=== PATIENT | female | born 1935 | race Caucasian/White ===

== ENCOUNTER → 2017-05-02 | Outpatient (CLI) | payer MEDICARE ==
--- NOTE | ~2017-05-02 | NM22 ---
[facility] A Service of [facility] & [facility] RADIOLOGY TEXT RESULTS PATIENT: ALON JEAN LOCATION: [facility] : 37 UNIT #: [id number] AGE: [address]: Heidi Augustin SEX: F ORDER DR: [id number] [facility] [address] [place], [place] [address] [id number] O MR#: [id number] Acc #: [id number] NAME: ALON JEAN : 1935 SEX: F STUDY DATE/TIME: 05/02/2017 10:03 UNIT: [facility] ROOM: STUDY DESCRIPTION: MIKI Hepatobiliary W GB Pharm Attending Physician: Heidi Augustin A.P.R.N. Referring Physician: Heidi Augustin A.P.R.N. Ordering Physician: Heidi Augustin A.P.R.N. Primary Care Physician: Heidi Augustin A.P.R.N. MEDICAL IMAGING REPORT This report is preliminary unless electronic signature is present EXAM Hepatobiliary scan, 05/02/2017 INDICATION Weight loss and anorexia. Nausea in the mornings. Pressure in the center of the abdomen. Symptoms for about 1 month. FINDINGS Imaging was obtained of the abdomen for 60 minutes after the IV administration of 4.7 mCi technetium 99m-Choletec. Comparison made with CT abdomen from 04/28/2017. There is prompt uptake by the liver. Biliary and gallbladder activity are seen within 30 minutes. Small bowel activity is seen within 45 minutes. There is no evidence of acute cholecystitis. Following the IV administration of 1.4 mcg of Kinevac, gallbladder ejection fraction is 90%. IMPRESSION Normal hepatic biliary scan. Normal gallbladder ejection fraction of about 90% after Kinevac stimulation. Dictated by... Rian Nichols Jr., M.D. THIS IS AN ELECTRONICALLY VERIFIED REPORT Rian Nichols Jr., M.D. at 05/03/2017 4:38 PM ROMAN/kylah TD: 05/03/2017 01:51 JOB #: [id number] [facility] A Service of [facility] & [facility] RADIOLOGY TEXT RESULTS PATIENT: ALON JEAN LOCATION: [facility] : 37 UNIT #: [id number] AGE: [address]: Heidi Augustin SEX: F ORDER DR: MEDICAL IMAGING REPORT Page 1 of 1 COPY
--- NOTE | ~2017-05-02 | NM22 ---
[facility] A Service of [facility] RADIOLOGY TEXT RESULTS PATIENT: ALON JEAN LOCATION: [facility] #: [id number] : 37 UNIT #: [id number] AGE: [address]: Heidi Augustin SEX: F ORDER DR: [id number] [facility] [address] [place], [place] [address] [id number] O MR#: [id number] Acc #: [id number] NAME: ALON JEAN : 1935 SEX: F STUDY DATE/TIME: 05/02/2017 10:03 UNIT: [facility] ROOM: STUDY DESCRIPTION: MIKI Hepatobiliary W GB Pharm Attending Physician: Heidi Augustin A.P.R.N. Referring Physician: Heidi Augustin A.P.R.N. Ordering Physician: Heidi Augustin A.P.R.N. Primary Care Physician: Heidi Augustin A.P.R.N. MEDICAL IMAGING REPORT This report is preliminary unless electronic signature is present REVISED REPORT EXAM Hepatobiliary scan, 05/02/2017 INDICATION Weight loss and anorexia. Nausea in the mornings. Pressure in the center of the abdomen. Symptoms for about 1 month. FINDINGS Imaging was obtained of the abdomen for 60 minutes after the IV administration of 4.7 mCi technetium 99m-Choletec. Comparison made with CT abdomen from 04/28/2017. There is prompt uptake by the liver. Biliary and gallbladder activity are seen within 30 minutes. Small bowel activity is seen within 45 minutes. There is no evidence of acute cholecystitis. Following the IV administration of 1.4 mcg of Kinevac, gallbladder ejection fraction is 90%. IMPRESSION Normal hepatic biliary scan. Normal gallbladder ejection fraction of about 90% after Kinevac stimulation. *ACCESSION NUMBER MODIFIED. Dictated by... Rian Nichols Jr., M.D. THIS IS AN ELECTRONICALLY VERIFIED REPORT [facility] A Service of [facility] RADIOLOGY TEXT RESULTS PATIENT: [facility]ON JEAN [id number] 37 UNIT #: [id number] AGE: [address]: Heidi Augustin SEX: F ORDER DR: Rian Nichols Jr. MAbner at 05/04/2017 2:08 PM ROMAN/kylah TD: 05/03/2017 01:51 JOB #: [id number] MEDICAL IMAGING REPORT Page 1 of 1 COPY
--- NOTE | ~2017-05-02 | US77 ---
[facility] A Service of [facility] & [facility] RADIOLOGY TEXT RESULTS PATIENT: ZAHIDA JEAN LOCATION: [facility] : 37 UNIT #: [id number] AGE: [address]: Heidi Augustin SEX: F ORDER DR: [id number] [facility] [address] [place], [place] [address] [id number] O MR#: [id number] Acc #: [id number] NAME: ZAHIDA JEAN : 1935 SEX: F STUDY DATE/TIME: 05/02/2017 11:57 UNIT: [facility] ROOM: STUDY DESCRIPTION: US Kidney Bilateral Complete Attending Physician: Heidi Augustin A.P.R.N. Referring Physician: Heidi Augustin A.P.R.N. Ordering Physician: Heidi Augustin A.P.R.N. Primary Care Physician: Heidi Augustin A.P.R.N. MEDICAL IMAGING REPORT This report is preliminary unless electronic signature is present EXAM Renal ultrasound INDICATION Abnormal CT performed April 28, 2017 which showed a low-attenuation lesion on the left kidney. I TECHNIQUE Aguilar-scale and color Doppler sonographic images were obtained through the kidneys and bladder. FINDINGS The right kidney is normal in appearance. No solid or cystic renal masses are seen and there is no hydronephrosis. On the left kidney there is a 1.8 cm x 1.6 cm x 1.6 cm anechoic structure with no internal flow which is characteristic of a simple renal cyst. No hydronephrosis is identified on the left and there are no solid renal masses. Urinary bladder appears unremarkable. IMPRESSION Simple left renal cyst. Dictated by... Zahida Lancaster M.D. THIS IS AN ELECTRONICALLY VERIFIED REPORT Zahida Lancaster M.D. at 05/03/2017 5:07 PM AFF/kylah TD: 05/03/2017 04:01 JOB #: [id number] [facility] A Service of [facility] & [facility] RADIOLOGY TEXT RESULTS PATIENT: ZAHIDA JEAN [id number] 37 UNIT #: [id number] AGE: [address]: Heidi Augustin SEX: F ORDER DR: MEDICAL IMAGING REPORT Page 1 of 1 COPY
== END | disposition home or self-care (01) ==
LOC: CNUC 09:18
DX: K80.20 Calculus of gallbladder without cholecystitis without obstruction (principal); R10.9 Unspecified abdominal pain; R11.0 Nausea; N28.9 Disorder of kidney and ureter, unspecified; N28.1 Cyst of kidney, acquired
CPT/HCPCS: 76770; 78227; A9537; J2785; J2805